=== PATIENT | female | born 1955 | race Caucasian/White ===

== ENCOUNTER 2017-10-05 08:17 | Outpatient (CLI) | payer OTHER ==
--- NOTE | 2017-10-05 10:13 | MRI ---
MRI OF RIGHT INDEX FINGER PERFORMED WITHOUT CONTRAST ENHANCEMENT: History: Injured index finger in August and having finger pain ever since. FINDINGS: The marrow signal change within the bone is normal. I do not see any signs of fracture. Extensor and flexor tendons are normal in appearance. I do not see any signs of a pulling injury. There is some mild superficial soft tissue edema. No fluid collections. IMPRESSION: 1. Some mild nonspecific more superficial soft tissue edema change seen. No signs of tendon injury or signs that would suggest any type of pulling injury. POS: HERRERA
== END 2017-10-05 08:18 | disposition home or self-care (01) ==
LOC: SCSMRI 08:17
PROVIDERS: ATTEND Orthopaedic Surgery Hand Surgery
DX: S63.61 Unspecified sprain of other and unspecified finger(s) (principal)

== ENCOUNTER 2018-05-11 15:37 | Outpatient (CLI) | payer OTHER | END 2018-05-11 15:38 | disposition home or self-care (01) | LOC: BICMAMMO 15:37 | PROVIDERS: ATTEND Specialist | DX: Z12.31 Encounter for screening mammogram for malignant neoplasm of breast (principal); Z80.3 Family history of malignant neoplasm of breast | CPT/HCPCS: 77063; 77067 ==

== ENCOUNTER 2019-07-12 07:23 | Outpatient (CLI) | payer OTHER ==
--- NOTE | 2019-07-12 07:55 | ULT ---
GALLBLADDER ULTRASOUND: HISTORY: Right upper quadrant abdominal pain FINDINGS: The liver demonstrates homogeneous echotexture without focal mass or intrahepatic biliary ductal dila tation. There is a 2.6 cm shadowing gallstone without gallbladder wall thickening or pericholecystic fluid ar e seen. The right kidney and pancreas are normal. The common duct [id number] in diameter. No free fluid is seen in the Edwards's pouch. IMPRESSION: Cholelithiasis
== END 2019-07-12 07:24 | disposition home or self-care (01) ==
LOC: SCSULT 07:23
PROVIDERS: ATTEND Internal Medicine Gastroenterology
DX: Z12.11 Encounter for screening for malignant neoplasm of colon (principal); R10.11 Right upper quadrant pain; R63.4 Abnormal weight loss; R19.7 Diarrhea, unspecified; K80.20 Calculus of gallbladder without cholecystitis without obstruction
CPT/HCPCS: 76705

== ENCOUNTER 2019-08-31 11:52 | Day surgery (SDC) | payer OTHER ==
[2019-08-30 14:26] VITALS: BMI 29.5
[2019-08-31] MEDS ORDERED: Ketorolac Tromethamine 30 MG/ML VIAL ONE (12:38)
[2019-08-31] MEDS ORDERED: Levofloxacin 500 mg/D5W 100 ml Premix Bag ONE (12:38)
[2019-08-31] MEDS ORDERED: Midazolam HCl 2 mg/2 ml Vial ONE (13:40)
[2019-08-31] MEDS ORDERED: Bupivacaine/Epinephrine 0.25% 30 ML VIAL ONE (13:50)
[2019-08-31] MEDS ORDERED: Fentanyl 100 MCG/2 ML VIAL ONE ×3 (14:05→16:08)
[2019-08-31 14:06] LABS: #Basophils 0.1 thou/uL (0.0-0.2); #Eosinphils 0.1 thou/uL (0.0-0.7); #Monocytes 0.5 thou/uL (0.11-0.59); #Neutrophils 3.6 thou/uL (1.40-6.50); %Basophils 0.9 % (0.0-1.0); %Eosinophils 1.9 % (0.0-10.0); %Lymphocytes 32.1 % (21.0-51.0); %Monocytes 7.4 % (0.0-10.0); %Neutrophils 57.7 % (42.0-75.0); Hemoglobin 14.5 g/dL (12.0-16.0); Mean Corpuscular HGB CONC 32.8 g/dL (32.0-36.0); Mean Corpuscular Hemoglobin 30.3 pg (27.0-31.0); Mean Corpuscular Volume 92.4 fL (78.0-98.0); Platelet Count 201 thou/uL (130-400); RBC Distribution Width 11.6 % (11.5-14.5); Red Blood Cell (RBC) Count 4.77 mill/uL (4.20-5.40); White Blood Cell (WBC) Count 6.3 thou/uL (4.8-10.8)
[2019-08-31 14:17] LABS: ALT (SGPT) 14 U/L (8-55); AST (SGOT) 24 U/L (5-34); Albumin 4.1 g/dL (3.4-4.8); Alkaline Phosphatase 70 U/L (40-110); Anion Gap 11 mmol/L (10-20); BUN (Urea Nitrogen) 21 mg/dL (9.8-20.1); Bilirubin, Total 0.6 mg/dL (0.2-1.2); Calc. Creatinine Clearance 69 mL/min (70-130); Calcium 9.5 mg/dL (7.8-10.44); Carbon Dioxide 26 mmol/L (23-31); Chloride 107 mmol/L (98-107); Estimated GFR-MDRD 54; Globulin 3.5 g/dL (2.4-3.5); Glucose 87 mg/dL (80-115); Potassium 4.4 mmol/L (3.5-5.1); Protein, Total 7.6 g/dL (6.0-8.3); Sodium 140 mmol/L (136-145)
[2019-08-31] MEDS ORDERED: SUGAMMADEX SODIUM 200 MG/2 ML VIAL ONE (15:06)
--- NOTE | 2019-08-31 15:33 | PDOC.OP ---
Operative Note - Operative Note Operative Note: DATE OF PROCEDURE: 08/31/2019 PROCEDURES: Laparoscopic cholecystectomy. SURGEON: Richie Velasco M.D. PREOPERATIVE DIAGNOSIS: Symptomatically gallstones POSTOPERATIVE DIAGNOSIS: Symptomatic gallstones FINDINGS: Chronically distended thin walled gallbladder with a large stone in the lumen. The stone was removed and given to the patient per her request. HISTORY: Patient with symptoms of biliary colic. Laparoscopic cholecystectomy was recommended for symptomatic relief. Preoperative LFTs were normal and bile duct was normal caliber on preoperative imaging. PROCEDURE: After informed consent was obtained and appropriate preoperative antibiotics were administered, the patient was taken to the operating room and placed in the supine position and general endotracheal anesthesia was administered. The stomach was decompressed with an OG tube and the abdomen was prepped and draped in standard sterile fashion. Local anesthesia was infused to the skin and subcutaneous tissues at the umbilical level. A transverse skin incision was made. The fascia was elevated and a Veress needle was placed into the abdominal cavity without difficulty. Opening pressure was less than 5 and carbon dioxide gas easily insufflated to an intra-abdominal pressure of 15, which the patient tolerated well. The Veress needle was withdrawn and a [place] port advanced under direct vision. The abdominal cavity was carefully examined. There was no evidence of Veress needle or of trocar injury. Local anesthesia was infused to the skin and subcutaneous tissues at the epigastric, right upper quadrant, and right lateral abdominal sites and trocars were placed under direct vision of the laparoscope. The fundus of the gallbladder was grasped and retracted superiorly. The infundibulum was grasped and retracted laterally. The serosa was stripped inferiorly at the level of the neck of the gallbladder exposing the cystic duct and artery which were traced clearly to their insertion in the gallbladder. Critical view of safety was obtained and the cystic duct and artery were clipped and divided between clips. The gallbladder was then dissected free of the gallbladder bed using hook electrocautery. Prior to complete removal of the gallbladder from the gallbladder bed, the area of the cystic duct and artery stumps was examined. The clips were in good position completely across these structures and there was no bleeding and no leakage of bile. The gallbladder was then placed into an EndoCatch bag and drawn out through the epigastric incision. The epigastric trocar was replaced and the operative site easily irrigated to clear. There was no significant bleeding or spillage of bile. The epigastric trocar was removed and the fascia closed under direct laparoscopic vision with a 0 Vicryl suture on a GraNee needle in a [id number] manner with excellent technical result. The right upper quadrant and right lateral abdominal trocars were removed and hemostasis verified. Carbon dioxide gas was allowed to desufflate through the umbilical trocar which was then removed. The skin incisions were closed with 4- 0 subcuticular Monocryl sutures and Dermabond dressings were placed. The patient was extubated and taken to the recovery room in good condition. There were no complications. ESTIMATED BLOOD LOSS: Minimal. SPECIMEN : Gallbladder and contents.
[2019-08-31] MEDS ORDERED: Ondansetron PF 4 MG/2 ML Vial ONE (15:47)
[2019-08-31] MEDS ORDERED: Morphine 2 MG/ML SYRINGE ONE ×2 (16:28→16:41)
[2019-08-31] MEDS ORDERED: HYDROcodone/Acetaminophen 5/325 mg Tablet ONE (17:47)
== END 2019-08-31 18:25 | disposition home or self-care (01) ==
LOC: SDC 11:52
PROVIDERS: ATTEND Surgery
PROC: 0FT44ZZ Resection of Gallbladder, Percutaneous Endoscopic Approach (ICD-10-PCS; principal; 2019-08-31)
DX: K80.10 Calculus of gallbladder with chronic cholecystitis without obstruction (principal); E06.3 Autoimmune thyroiditis; I10 Essential (primary) hypertension; I25.2 Old myocardial infarction; Z79.899 Other long term (current) drug therapy; Z88.0 Allergy status to penicillin; Z88.1 Allergy status to other antibiotic agents; Z88.5 Allergy status to narcotic agent; Z91.040 Latex allergy status; Z91.018 Allergy to other foods
CPT/HCPCS: 80053; 85025; 88304; J0131; J1885; J1956; J2250; J2270; J2405; J3010